=== PATIENT | male | born 1945 | race Caucasian/White ===

== ENCOUNTER 2016-09-03 04:15 | Emergency (ER) | payer SELFPAY ==
--- NOTE | ~2016-09-03 | CR72 ---
[facility] A Service of [facility] RADIOLOGY TEXT RESULTS PATIENT: DENI MIMS LOCATION: SED : 47 UNIT #: [id number] AGE: [address]: Preet Medrano MD SEX: M ORDER DR: [id number] [place] [id number] E MR#: [id number] Acc #: [id number] NAME: DENI MIMS : 1945 SEX: M STUDY DATE/TIME: 09/03/2016 4:13 UNIT: SED ROOM: STUDY DESCRIPTION: CR Chest Single View Portable Attending Physician: Preet Medrano M.D. Ordering Physician: Preet Medrano M.D. Primary Care Physician: Primary Care Physician No MEDICAL IMAGING REPORT This report is preliminary unless electronic signature is present. EXAM Portable AP view chest COMPARISON August 30, 2016 and August 19, 2016. INDICATIONS 71-year-old male with chest pain for 6 months, worsening over last week. History of hypertension. FINDINGS Exam is significantly limited by motion. This limits evaluation of the distal leads of a right chest pacemaker device. No evidence of pneumothorax, or acute airspace disease when allowing for motion. No pleural effusion. Cardiomediastinal silhouette is within normal limits. IMPRESSION 1. Motion limited exam. No convincing evidence of acute airspace disease. No pneumothorax or pleural effusion. 2. Please note that the tips of the pacemaker leads are not well evaluated due to motion. The leads appear to be grossly stable in position. Dictated by... Viktor Acevedo M.D. THIS IS AN ELECTRONICALLY VERIFIED REPORT Viktor Acevedo M.D. at 09/06/2016 7:59 PM Nelida TD: 09/03/2016 09:13 JOB #: [id number] [facility] A Service of [facility] RADIOLOGY TEXT RESULTS PATIENT: DENI MIMS LOCATION: SED : 47 UNIT #: [id number] AGE: [address]: Preet Medrano MD SEX: M ORDER DR: MEDICAL IMAGING REPORT
--- NOTE | ~2016-09-03 | EKG ---
PATIENT: DENI MIMS UNIT #: [id number] Ventricular Rate: 63 BPM Atrial Rate: 63 BPM P-R Interval: 172 ms QRS Duration: 90 ms Q-T Interval: 406 ms QTC Calculation(Bezet): 415 ms P [place]: 70 degrees Calculated R [place]: -14 degrees Calculated T [place]: 49 degrees Diagnosis Line: Normal sinus rhythm Diagnosis Line: Cannot rule out Septal infarct , age undetermined Diagnosis Line: Baseline wander Otherwise normal ECG Diagnosis Line: When compared with ECG of 30-AUG-2016 03:43, Diagnosis Line: QRS axis Shifted right Diagnosis Line: Septal infarct is now Present Diagnosis Line: Confirmed by MADELIN NEAL MD ([id number]) on 09/05/2016 Diagnosis Line: 6:02:00 PM INTERPRETING MD: VAL SMITH
[2016-09-03 04:07] LABS: POC - CKMB 6.5 ng/mL (0.0-7.9); POC - TROPONIN <0.05 ng/mL (<=0.05)
[~2016-09-03 04:15] MED LIST: NO MEDICATIONS
[2016-09-03 04:25] LABS: INR 1.1; PROTHROMBIN TIME (PATIENT) 12.6 SECONDS (9.5-12.4)
[2016-09-03 04:32] LABS: PARTIAL THROMBOPLASTIN TIME 23.2 SECONDS (25.6-38.1)
[2016-09-03 04:33] LABS: ALBUMIN SERUM 4.3 g/dL (3.5-5.0); ALCOHOL BLOOD 19 mg/dL (0); ALKALINE PHOSPHATASE 75 U/L (32-92); ALT (SGPT) 15 U/L (10-40); AST (SGOT) 16 U/L (10-42); BILIRUBIN, DIRECT 0.1 mg/dL (0.0-0.2); BILIRUBIN,INDIRECT 0.6 mg/dL (0.0-0.9); BILIRUBIN,TOTAL 0.7 mg/dL (0.2-2.0); BLOOD UREA NITROGEN 16 mg/dL (9-23); BUN/CREATININE RATIO 22.85; CALCIUM SERUM 9.5 mg/dL (8.4-10.2); CARBON DIOXIDE 24 mmol/L (22-31); CHLORIDE 105 mmol/L (100-111); CREATININE SERUM 0.7 mg/dL (0.6-1.4); GLOM FILT RATE Estimated ABOVE60 mL/min (>60); GLUCOSE FASTING 156 mg/dL (70-110); POTASSIUM 3.7 mmol/L (3.5-5.1); PROTEIN TOTAL SERUM 7.2 g/dL (6.0-8.3); SALICYLATE <4.0 mg/dL; SODIUM 139 mmol/L (135-145)
[2016-09-03 04:36] LABS: ACETAMINOPHEN <10 ug/mL
[2016-09-03 04:48] LABS: BASOPHIL% 0.8 % (0-2.5); EOSINOPHIL# 0.1 X10e3 (0-0.7); HEMATOCRIT 35.9 % (38.0-50.0); HEMOGLOBIN 12.1 gm/dL (13.0-16.0); LYMPHOCYTE# 1.4 X10e3 (1.0-3.5); LYMPHOCYTE% 22.7 % (17.0-45.0); MEAN CELL VOLUME 99.2 FL (83-96); MEAN CORPUSCULAR HEMOGLOBIN 33.3 PG (28-34); MEAN CORPUSCULAR HGB CONC 33.6 g/dL (30-36); MEAN PLATELET VOLUME 7.1 FL (6.5-11.5); MONOCYTE# 0.4 X10e3 (0-1.0); MONOCYTE% 6.2 % (3.0-12.0); NEUTROPHIL# 4.3 X10e3 (1.5-7.1); NEUTROPHIL% 68.3 % (40-75); PLATELET COUNT 206 X10e3 (140-420); RED BLOOD COUNT 3.62 X10e (3.90-5.60); RED CELL DISTRIBUTION WIDTH 13.8 % (11.0-15.5); WHITE BLOOD COUNT 6.3 X10e3 (4.0-10.5)
[2016-09-03 04:49] LABS: DIFF IND NO
[2016-09-22] MEDS ORDERED: DIABETES MED (00:56)
== END 2016-09-03 08:13 ==
LOC: SED 04:15
PROVIDERS: Emergency Medicine
DX: R45.851 Suicidal ideations (principal); R07.9 Chest pain, unspecified; E11.9 Type 2 diabetes mellitus without complications; F17.200 Nicotine dependence, unspecified, uncomplicated; Z88.7 Allergy status to serum and vaccine
CPT/HCPCS: 36415; 71010; 80048; 80076; 82553; 83874; 84484; 85025; 85610; 85730; 93005; 99285; G0480

== ENCOUNTER 2016-09-03 08:49 | Inpatient (IN) | payer MEDICARE ==
--- NOTE | ~2016-09-03 | HP ---
Unit #: [id number] #: [id number] Patient: RENÉ MIMS [id number] [facility] [address] [place] [address] [id number] I MR#: [id number] NAME: RENÉ MIMS ROOM: P214 Age: 71 Sex: M Admission Date: 09/03/2016 : 1945 Attending Physician: Jake Stubbs M.D. Admitting Physician: Jake Stubbs M.D. Primary Care Physician: Generic Doctor Not In System HISTORY AND PHYSICAL René is a 71 year old male admitted on 09/03/[address] [place] [address] for suicidal ideation. He had previous admission on 08/21/2016. I reviewed the history and physical from that admission and there are no changes. Dictated by..Edie Vaughn/lianne TD: 09/03/2016 17:46 JOB #: [id number] HISTORY AND PHYSICAL X GABBY ALBERTO APRN HISTORY AND PHYSICAL
--- NOTE | ~2016-09-03 | PN ---
Unit #: [id number] #: [id number] Patient: DENI MIMS [id number] [facility] [address] [place] [address] [id number] I MR#: [id number] NAME: DENI MIMS ROOM: [facility] Age: 71 Sex: M Admission Date: 09/03/2016 : 1945 Attending Physician: Jake Stubbs M.D. Admitting Physician: Jake Stubbs M.D. Primary Care Physician: Poli Doctor Not In System [facility] PROGRESS NOTES DATE September 06, 2016 DISCUSSION Mr. Mims is a 71-year-old white male, who was seen today and chart was reviewed and the case was discussed with the staff. He has been anxious, withdrawn, but has not shown any agitation or irritability, or behavioral problems and has been cooperative with the treatment recommendations and he has been taking the medications and tolerating them fairly well with no reported side effects. MENTAL STATUS EXAMINATION An elderly white male, who was casually dressed with fair personal hygiene and appears to be in no acute distress or discomfort. He was awake and alert on interaction with intact orientation. His mood is anxious with a congruent affect. He denies any suicidal or homicidal ideations. His insight and judgment remain slightly impaired. TREATMENT PLAN 1. We will continue him on his current medications and treatment protocol, and will monitor his response to the medications, and make further adjustments as needed. 2. We will continue to followup. Dictated by... Jatinder Appiah/joe TD: 09/07/2016 12:40 JOB #: [id number] Unit #: [id number] #: [id number] Patient: DENI MIMS [facility] PROGRESS NOTES X Jake Stubbs MD PROGRESS NOTE
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
--- NOTE | ~2016-09-03 | PN ---
Unit #: [id number] #: [id number] Patient: DENI MIMS [id number] [facility] [address] [place] [address] [id number] I MR#: [id number] NAME: DENI MIMS ROOM: P214 Age: 71 Sex: M Admission Date: 09/03/2016 : 1945 Attending Physician: Jake Stubbs M.D. Admitting Physician: Jake Stubbs M.D. Primary Care Physician: Poli Doctor Not In System [facility] PROGRESS NOTES DATE OF SERVICE: 09/05/2016 SUBJECTIVE Mr. Mims is a 71-year-old white male who was seen today and chart was reviewed, and case was discussed with the staff. He has been anxious, withdrawn, and rather seclusive to himself. Meanwhile, he has been cooperative with treatment recommendation and has been taking the medications and tolerating them fairly well with no reported side effects. MENTAL STATUS EXAMINATION An elderly white male who was casually dressed with fair personal hygiene, appears to be in no acute distress or discomfort. He was awake and alert on interaction with intact orientation. His mood was anxious with a congruent affect. He denies any suicidal or homicidal ideations. His insight and judgment remain slightly impaired. TREATMENT PLAN 1. We will continue him on his current treatment protocol. We will monitor his response to medications and make further adjustments as needed. 2. We will continue to follow up. Dictated by... Jatinder Appiah/amari TD: 09/06/2016 02:07 JOB #: [id number] [facility] PROGRESS NOTES X Jake Stubbs MD PROGRESS NOTE
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
--- NOTE | ~2016-09-03 | PN ---
Unit #: [id number] #: [id number] Patient: DENI MIMS [id number] [facility] [address] [place] [address] [id number] I MR#: [id number] NAME: DENI MIMS ROOM: [facility] Age: 71 Sex: M Admission Date: 09/03/2016 : 1945 Attending Physician: Jake Stubbs M.D. Admitting Physician: Jake Stubbs M.D. Primary Care Physician: Poli Doctor Not In System [facility] PROGRESS NOTES DATE OF SERVICE 09/04/2016 DISCUSSION Mr. Mims is a 71-year-old white male who was seen today. Chart was reviewed and case was discussed with the staff who reports the patient has been very seclusive to himself and has been lying in his bed most of time and does not appear to be participating in any treatment-related activities. On approach, the patient once again was not interested in carrying on any conversation with me and neither was interested in discussing any of his treatment plan and not expressing any complaints about his medications. MENTAL STATUS EXAMINATION An elderly white male who is casually dressed with fair personal hygiene, appears to be in no acute distress or discomfort. He was awake and alert with impaired attention and concentration. His mood is anxious with congruent affect. His speech is slow and restricted in content. He denies any current suicidal or homicidal ideations. His insight and judgment remain significantly impaired. TREATMENT PLAN We will continue him on his current medications and treatment protocol. We will monitor his response to the medications and make further adjustments as needed. Dictated by... Jatinder Appiah/rosy TD: 09/06/2016 09:27 JOB #: [id number] Unit #: [id number] #: [id number] Patient: DENI MIMS [place] PROGRESS NOTES X Jake Stubbs MD PROGRESS NOTE
[2016-09-22] MEDS ORDERED: DIABETES MED (00:56)
== END 2016-09-07 12:58 | disposition home or self-care (01) | DRG 885 ==
LOC: P2S 08:49
DX: F33.1 Major depressive disorder, recurrent, moderate (principal); G61.0 Guillain-Barre syndrome; Z59.0 Homelessness; E11.9 Type 2 diabetes mellitus without complications; I10 Essential (primary) hypertension
CPT/HCPCS: 82947

== ENCOUNTER 2016-09-22 01:03 | Emergency (ER) | payer SELFPAY ==
[~2016-09-22 01:03] MED LIST changes: +DIABETES MED
== END 2016-09-22 09:02 | disposition home or self-care (01) ==
LOC: SED 01:03
DX: F10.20 Alcohol dependence, uncomplicated (principal); Z59.0 Homelessness; E11.9 Type 2 diabetes mellitus without complications; I10 Essential (primary) hypertension
CPT/HCPCS: 82947; 99282

== ENCOUNTER 2016-10-03 08:12 | Emergency (ER) | payer SELFPAY | END 2016-10-03 10:02 | disposition home or self-care (01) | LOC: CED 08:12 | DX: L85.3 Xerosis cutis (principal); Z59.0 Homelessness; E11.9 Type 2 diabetes mellitus without complications; F17.200 Nicotine dependence, unspecified, uncomplicated; Z98.890 Other specified postprocedural states | CPT/HCPCS: 99282 ==